=== PATIENT | female | born 1945 | race Caucasian/White ===

== ENCOUNTER → 2018-03-14 | Outpatient (CLI) | payer OTHER | LOC: RAD 01:11 | DX: Z12.31 Encounter for screening mammogram for malignant neoplasm of breast (principal) ==

== ENCOUNTER → 2019-04-27 | Outpatient (CLI) | payer OTHER | LOC: RAD 08:51 | DX: Z12.31 Encounter for screening mammogram for malignant neoplasm of breast (principal) ==